=== PATIENT | female | born 2005 | race Caucasian/White ===

== ENCOUNTER 2025-02-23 16:20 | Outpatient (CLI) | payer OTHER ==
[~2025-02-23] VITALS: Ht 157.5 cm; Wt 73.9 kg
[2025-02-23 15:30] VITALS: BP 103/69
[2025-02-23] MEDS ORDERED: PRENATA CHEWAB1 EACH PO (16:42)
[2025-02-23 16:43] LABS: BASO % 0.1 % (0.1-1.2); EOS # 0.04 (0.04-0.54); EOS % 0.3 % (0.7-7.0); LYMPH # 1.60 (1.18-3.74); LYMPH % 12.0 % (19.3-53.1); MEAN PLATELET VOLUME 9.70 fl (9.4-12.4); MONO # 0.88 (0.24-0.82); MONO % 6.6 % (4.7-12.5); NEUT # 10.72 (1.56-6.13); NEUT % 80.4 % (34.0-71.1); RED CELL DISTRIBUTION WIDTH 12.5 % (11.6-14.4); URINE APPEARANCE Cloudy; URINE BILIRRUBIN Negative (NEGATIVE); URINE BLOOD Negative; URINE COLOR Dark Yellow; URINE GLUCOSE Negative (NEGATIVE); URINE KETONE Trace (NEGATIVE); URINE LEUKOCYTE Negative; URINE NITRATE Negative; URINE PROTEIN Trace (NEGATIVE); URINE UROBILINOGEN 1.0 E.U./dl
[2025-02-23 16:44] LABS: URINE EPITHELIAL CELLS 161.4 uL (0.0-38.8); URINE RBC 4.9 uL (0.0-20.8); URINE WBC 19.9 uL (0.0-23.2)
[2025-02-23] MEDS ORDERED: RINGERS SOLUTION,LACTATED 1,000 ML IV SCH (16:45)
[2025-02-23 16:51] LABS: URINE BACTERIA > 9821.5 uL (0.0-1933); URINE CAST 0.29 uL (0.0-1.40)
[2025-02-23 17:32] LABS: ALT/SGPT 16.0 U/L (12-78); AST/SGOT 9.0 U/L (15-37); BILIRUBIN TOTAL 0.28 mg/dL (0.3-1.2); BUN CREA RATIO 13.0 (7.0-25.0); CREATININE SERUM 0.61 mg/dL (0.55-1.02); GFR 126.35; GLOBULINA 3.4 G/DL (2.4-3.5); GLUCOSE FASTING 98.0 mg/dL (65-100); OSMOLALITY SERUM 276.0 MOSM/KG (275-295)
[2025-02-23] MEDS ORDERED: CEFAZOLIN SODIUM 1,000 MG VIAL IV ONE (18:15)
[2025-02-23] MEDS ORDERED: BETAMETHASONE ACETATE,SOD PHOS 30 MG/5 ML ML IM ONE (19:45)
[2025-02-23] MEDS ORDERED: TERBUTALINE SULFATE 1 MG/ML AMPUL SUBCUTANEO ONE (19:45)
[2025-02-23 20:16] VITALS: BP 97/61
[2025-02-23 23:14] VITALS: BP 107/62
[2025-02-24] MEDS ORDERED: CEFAZOLIN SODIUM 1,000 MG VIAL IV SCH
[2025-02-24 03:09] VITALS: BP 83/50
[2025-02-24 06:17] VITALS: BP 92/54; O2SAT 98
[2025-02-24 07:06] VITALS: BP 92/54
[2025-02-24] MEDS ORDERED: CEFUROXIME500 MG PO (07:59)
[2025-02-24 08:46] VITALS: BP 92/54
[2025-02-24] MEDS ORDERED: BETAMETHASONE ACETATE,SOD PHOS 30 MG/5 ML ML IM ONE (19:45)
== END 2025-02-24 08:54 | disposition home or self-care (01) ==
LOC: OBS/DEL 16:20
PROVIDERS: ATTEND Specialist
DX: O26.893 Other specified pregnancy related conditions, third trimester (principal); O23.43 Unspecified infection of urinary tract in pregnancy, third trimester; N39.0 Urinary tract infection, site not specified; Z3A.31 31 weeks gestation of pregnancy

== ENCOUNTER 2025-03-19 20:13 | Outpatient (CLI) | payer OTHER ==
[2025-03-19 20:03] VITALS: BP 114/75
[~2025-03-19 20:13] MED LIST: CEFUROXIME500 MG PO; PRENATA CHEWAB1 EACH PO
[2025-03-19] MEDS ORDERED: TERBUTALINE SULFATE 1 MG/ML AMPUL SUBCUTANEO SCH (20:30)
[2025-03-19] MEDS ORDERED: RINGERS SOLUTION,LACTATED 1,000 ML IV SCH (20:30)
[2025-03-19 20:49] LABS: BASO % 0.1 % (0.1-1.2); EOS # 0.04 (0.04-0.54); EOS % 0.2 % (0.7-7.0); LYMPH # 2.52 (1.18-3.74); LYMPH % 15.6 % (19.3-53.1); MEAN PLATELET VOLUME 9.50 fl (9.4-12.4); MONO # 0.87 (0.24-0.82); MONO % 5.4 % (4.7-12.5); NEUT # 12.61 (1.56-6.13); NEUT % 78.2 % (34.0-71.1); RED CELL DISTRIBUTION WIDTH 12.7 % (11.6-14.4); URINE APPEARANCE Clear; URINE BILIRRUBIN Negative (NEGATIVE); URINE BLOOD Negative; URINE COLOR Yellow; URINE GLUCOSE Negative (NEGATIVE); URINE KETONE 15 (NEGATIVE); URINE LEUKOCYTE Negative; URINE NITRATE Negative; URINE PROTEIN Negative (NEGATIVE); URINE UROBILINOGEN 1.0 E.U./dl
[2025-03-19 20:52] LABS: URINE BACTERIA 250.7 uL (0.0-1933); URINE EPITHELIAL CELLS 30.3 uL (0.0-38.8); URINE RBC 2.7 uL (0.0-20.8); URINE WBC 9.5 uL (0.0-23.2)
[2025-03-19 20:57] LABS: URINE CAST 0.14 uL (0.0-1.40)
[2025-03-19 23:09] VITALS: BP 110/68
[2025-03-20 03:09] VITALS: BP 90/61
[2025-03-20 06:10] VITALS: BP 105/61; O2SAT 98
[2025-03-20] MEDS ORDERED: TERBUTALINE SULFATE 1 MG/ML AMPUL SUBCUTANEO ONE (08:00)
[2025-03-20] MEDS ORDERED: BETAMETHASONE ACETATE,SOD PHOS 30 MG/5 ML ML IM SCH (08:30)
[2025-03-20] MEDS ORDERED: BETAMETHASONE ACETATE,SOD PHOS 30 MG/5 ML ML ONE (09:52)
[2025-03-20] MEDS ORDERED: BETAMETHASONE ACETATE,SOD PHOS 30 MG/5 ML ML IM ONE (10:15)
[2025-03-20 11:32] VITALS: BP 101/58; O2SAT 99
[2025-03-20 15:14] VITALS: BP 108/68
[2025-03-20 17:32] VITALS: BP 108/68
== END 2025-03-20 17:37 | disposition home or self-care (01) ==
LOC: OBS/DEL 20:13
PROVIDERS: Obstetrics & Gynecology; ATTEND Specialist
DX: O36.8130 Decreased fetal movements, third trimester, not applicable or unspecified (principal); Z3A.33 33 weeks gestation of pregnancy; O26.899 Other specified pregnancy related conditions, unspecified trimester; O26.859 Spotting complicating pregnancy, unspecified trimester

== ENCOUNTER 2025-03-25 21:25 | Outpatient (CLI) | payer OTHER ==
[2025-03-25 20:40] VITALS: BP 112/69
[2025-03-25] MEDS ORDERED: RINGERS SOLUTION,LACTATED 1,000 ML IV SCH (22:15)
[2025-03-25 23:08] LABS: BASO % 0.1 % (0.1-1.2); EOS # 0.08 (0.04-0.54); EOS % 0.5 % (0.7-7.0); LYMPH # 2.47 (1.18-3.74); LYMPH % 16.9 % (19.3-53.1); MEAN PLATELET VOLUME 9.90 fl (9.4-12.4); MONO # 1.07 (0.24-0.82); MONO % 7.3 % (4.7-12.5); NEUT # 10.85 (1.56-6.13); NEUT % 74.2 % (34.0-71.1); RED CELL DISTRIBUTION WIDTH 12.9 % (11.6-14.4)
[2025-03-25 23:09] LABS: URINE APPEARANCE Clear; URINE BILIRRUBIN Negative (NEGATIVE); URINE BLOOD Negative; URINE COLOR Yellow; URINE GLUCOSE Negative (NEGATIVE); URINE KETONE Negative (NEGATIVE); URINE LEUKOCYTE Negative; URINE NITRATE Negative; URINE PROTEIN Negative (NEGATIVE); URINE UROBILINOGEN 0.2 E.U./dl
[2025-03-25 23:14] LABS: URINE BACTERIA 745.2 uL (0.0-1933); URINE EPITHELIAL CELLS 27.6 uL (0.0-38.8); URINE RBC 6.0 uL (0.0-20.8); URINE WBC 15.6 uL (0.0-23.2)
[2025-03-25 23:20] LABS: URINE CAST 0.00 uL (0.0-1.40)
[2025-03-25 23:40] VITALS: BP 90/54
[2025-03-26 04:24] VITALS: BP 93/55
[2025-03-26 06:37] VITALS: BP 95/66; O2SAT 97
[2025-03-26 12:14] VITALS: BP 104/70
[2025-03-26 14:38] VITALS: BP 112/70
== END 2025-03-26 14:52 | disposition home or self-care (01) ==
LOC: OBS/DEL 21:25
PROVIDERS: Obstetrics & Gynecology; ATTEND Specialist
DX: O60.03 Preterm labor without delivery, third trimester (principal); R10.2 Pelvic and perineal pain; O36.1930 Maternal care for other isoimmunization, third trimester, not applicable or unspecified; O26.853 Spotting complicating pregnancy, third trimester; Z3A.34 34 weeks gestation of pregnancy

== ENCOUNTER 2025-04-14 12:12 | Inpatient (IN) | payer OTHER ==
[~2025-04-14] VITALS: Ht 160 cm; Wt 82.6 kg
[2025-05-01] VITALS (8 sets, daily range): BP systolic 124–139; BP diastolic 57–78
[2025-05-01 01:45] LABS: URINE APPEARANCE Clear; URINE BILIRRUBIN Negative (NEGATIVE); URINE BLOOD Small; URINE COLOR Yellow; URINE GLUCOSE Negative (NEGATIVE); URINE KETONE Negative (NEGATIVE); URINE LEUKOCYTE Moderate; URINE NITRATE Negative; URINE PROTEIN Trace (NEGATIVE); URINE UROBILINOGEN 1.0 E.U./dl
[2025-05-01] MEDS ORDERED: RINGERS SOLUTION,LACTATED 1,000 ML IV SCH (01:45)
[2025-05-01 01:48] LABS: URINE BACTERIA 2169.6 uL (0.0-1933); URINE EPITHELIAL CELLS 57.6 uL (0.0-38.8); URINE RBC 10.5 uL (0.0-20.8); URINE WBC 27.6 uL (0.0-23.2)
[2025-05-01 01:57] LABS: BASO % 0.2 % (0.1-1.2); EOS # 0.04 (0.04-0.54); EOS % 0.2 % (0.7-7.0); LYMPH # 2.27 (1.18-3.74); LYMPH % 11.4 % (19.3-53.1); MEAN PLATELET VOLUME 10.00 fl (9.4-12.4); MONO # 1.60 (0.24-0.82); MONO % 8.0 % (4.7-12.5); NEUT # 15.86 (1.56-6.13); NEUT % 79.6 % (34.0-71.1); RED CELL DISTRIBUTION WIDTH 13.0 % (11.6-14.4)
[2025-05-01 02:15] LABS: URINE CAST 0.43 uL (0.0-1.40)
[2025-05-01 02:21] LABS: ALT/SGPT 15.0 U/L (12-78); AST/SGOT 14.0 U/L (15-37); BILIRUBIN TOTAL 0.38 mg/dL (0.3-1.2); BUN CREA RATIO 10.0 (7.0-25.0); CREATININE SERUM 0.78 mg/dL (0.55-1.02); GFR 95.14; GLOBULINA 3.6 G/DL (2.4-3.5); GLUCOSE FASTING 84.0 mg/dL (65-100); OSMOLALITY SERUM 275.0 MOSM/KG (275-295)
[2025-05-01 02:44] LABS: INR 0.95
[2025-05-01] MEDS ORDERED: CHLORHEXIDINE GLUCONATE 120 ML BOTTLE TOP ONE ×2 (04:09→08:00)
[2025-05-01] MEDS ORDERED: LIDOCAINE HCL 1% 10ML VIAL ONE (04:09)
[2025-05-01] MEDS ORDERED: ERYTHROMYCIN BASE OPHT 1GM EACH TUBE OP ONE ×2 (04:09→08:00)
[2025-05-01] MEDS ORDERED: OXYTOCIN 20 UNITS/1000ML RL PIGGYBAG IV ONE (04:09)
[2025-05-01] MEDS ORDERED: ACETAMINOPHEN 500 MG GEL..CAP PO PRN (08:00)
[2025-05-01] MEDS ORDERED: LIDOCAINE HCL 1% 10ML VIAL IJ ONE (08:00)
[2025-05-01] MEDS ORDERED: OXYTOCIN 1,000 ML IV SCH (08:00)
[2025-05-01] MEDS ORDERED: BENZOCAINE/MENTHOL 90 ML BOTTLE TOP SCH (09:00)
[2025-05-01] MEDS ORDERED: HYDROCORTISONE 2.5% 30 GM TUBE RECTAL SCH (09:00)
[2025-05-01 14:41] LABS: BASO % 0.1 % (0.1-1.2); EOS # 0.00 (0.04-0.54); EOS % 0.0 % (0.7-7.0); LYMPH # 1.58 (1.18-3.74); LYMPH % 6.6 % (19.3-53.1); MEAN PLATELET VOLUME 10.30 fl (9.4-12.4); MONO # 1.54 (0.24-0.82); MONO % 6.5 % (4.7-12.5); NEUT # 20.52 (1.56-6.13); NEUT % 86.2 % (34.0-71.1); RED CELL DISTRIBUTION WIDTH 13.0 % (11.6-14.4)
[2025-05-02] VITALS: BP 129/84
[2025-05-02 08:00] VITALS: BP 116/78
[2025-05-02 16:00] VITALS: BP 122/84
[2025-05-03] VITALS: BP 109/75
[2025-05-03 08:00] VITALS: BP 117/75
== END 2025-05-03 13:06 | disposition home or self-care (01) | DRG 807 ==
LOC: LDR 05-01 01:04 → OB/GYN 05-01 08:56
PROVIDERS: ADMIT Specialist; ATTEND Specialist
PROC: 10E0XZZ Delivery of Products of Conception, External Approach (ICD-10-PCS; principal; 2025-05-01)
PROC: 0W8NXZZ Division of Female Perineum, External Approach (ICD-10-PCS; 2025-05-01)
PROC: 4A1HXCZ Monitoring of Products of Conception, Cardiac Rate, External Approach (ICD-10-PCS; 2025-05-01)
DX: O80 Encounter for full-term uncomplicated delivery (principal); Z37.0 Single live birth; Z3A.40 40 weeks gestation of pregnancy

== ENCOUNTER 2025-04-20 13:28 | Outpatient (CLI) | payer OTHER | END 2025-04-20 14:40 | disposition home or self-care (01) | LOC: NST 13:28 | PROVIDERS: ATTEND Specialist | DX: Z34.83 Encounter for supervision of other normal pregnancy, third trimester (principal) ==